=== PATIENT | female | born 1970 | race Caucasian/White ===

== ENCOUNTER 2025-03-06 14:23 | Emergency (ER) | payer SELFPAY ==
[2025-03-06 14:24] VITALS: BP 167/115; PULSE 110; RESP 16; TEMP 36.6; O2SAT 98
[2025-03-06 14:25] VITALS: BMI 62.8
--- NOTE | 2025-03-06 15:06 | EX.ED.DYSGE1 ---
HPI History of Present Illness Chief Complaint: Abscess [facility] Medical History (Updated 03/06/25 @ 14:41 by Rosalie Cordova) Diabetes Hypothyroidism Smoker COPD (chronic obstructive pulmonary disease) Asthma Home Medications ?Medication ?Instructions ?Recorded ?Last Taken ?Type ondansetron 4 mg disintegrating 4 mg PO Q8H PRN PRN Nausea #10 tabs 03/06/25 Unknown Rx tablet sulfamethoxazole 800 1 tab PO BID 10 days #20 tabs 03/06/25 Unknown Rx mg-trimethoprim 160 mg tablet (Bactrim DS) Allergy/AdvReac Type Severity Reaction Status Date / Time No Known Allergies Allergy Verified 03/06/25 14:25 Social History Smoking Status: Current every day smoker tobacco type: cigarettes EXAM Physical Exam Const Vital Signs: 03/06/25 14:24 Temperature 98 F Temperature Source Temporal Pulse Rate 110 H Respiratory Rate 16 Blood Pressure 167/115 H Blood Pressure Mean 132 Pulse Ox 98 Oxygen Delivery Method Room Air MDM MDM MDM Narrative Medical decision making narrative: HISTORY OF PRESENT ILLNESS: Chief complaint: Abscess 54-year-old female history of type 2 diabetes, hypothyroidism, tobacco abuse, COPD presents with abscess on her bottom that has popped. She states this began 1 week ago. Notes earlier today she sat down and felt a release of pressure and drainage of foul-smelling yellow fluid. This is continued REVIEW OF SYSTEMS: Pertinent positives: Abscess Pertinent negatives: Fever, vomiting, abdominal pain PHYSICAL EXAM: Nursing triage notes reviewed, Vital signs reviewed Constitutional: please see mdm Skin: Already draining gluteal abscess noted along the left buttock. No obvious peritoneal or rectal involvement noted. MEDICAL DECISION MAKING: Chief Complaint: please see [facility] External records reviewed: No prior lab studies Factors affecting care: As per HPI Social determinants of health: History of tobacco use History obtained from others: none Consults: none [facility] Narrative: The patient was initially tachycardic otherwise afebrile and nontoxic-appearing. Draining abscess. No crepitus bullae perineal or rectal involvement noted. Exam consistent with draining abscess on the left buttock. No obvious rectal involvement. Given abscess is draining currently there is no indication for incision and drainage at this time. Encouraged oral antibiotic therapy. Gave strict return precautions and follow-up instructions. The patient and/or family, caregivers express understanding. The patient and/or family, caregivers agrees with the plan. Shared decision making: I will have a discussion with the patient and or visitors regarding risk/benefits of further testing or admission. They will be made aware of of the risk/benefits inherent in this decision they will be given the opportunity to voice understanding. Total critical care time today provided was at least 0 minutes. This excludes separately billable procedures. Critical care time (if documented) is secondary to the patient having high probability of clinically significant/life threatening deterioration in the patient's condition which required my urgent intervention. Impression: 1. Abscess 2. History of type 2 diabetes Dispo: Discharge home This note was generated with [employer] dictation software. It may contain incorrect words, spelling, and punctuation that were not noted in review of the chart prior to signing. Discharge Plan Triage Chief Complaint: Abscess ED Provider: Kashif Daigle Dx/Rx/DC Orders Instructions: ED Abscess Antibiotic Treatment Only Prescriptions: New sulfamethoxazole-trimethoprim [Bactrim DS] 800-160 mg tablet 1 tab PO BID 10 Days Qty: 20 0RF ondansetron 4 mg tablet,disintegrating 4 mg PO Q8H PRN PRN (Reason: Nausea) Qty: 10 0RF Primary Care Provider: U Referrals: U [Other] Print Language: Mozambican
[2025-03-06] MEDS: Smz/Tmp Ds Tablet 1 TABLET PO (15:45)
[2025-03-06 15:47] VITALS: BP 137/98; PULSE 100; RESP 16; TEMP 36.6; O2SAT 97
--- NOTE | 2025-03-06 18:18 | ED.RN ---
Pt called and said that [facility] said [facility] didnt have the Rx. Pt was advised that on our end it shows transmitted. [facility] called and verbal was given.
== END 2025-03-06 15:50 | disposition home or self-care (01) ==
PROVIDERS: Emergency Provider Emergency Medicine; Visit Provider Emergency Medicine
DX: L02.31 Cutaneous abscess of buttock (principal); E11.622 Type 2 diabetes mellitus with other skin ulcer; F17.210 Nicotine dependence, cigarettes, uncomplicated
CPT/HCPCS: 99282